=== PATIENT | female | born 1980 | race Caucasian/White ===

== ENCOUNTER 2023-09-12 22:25 | Emergency (ER) | payer SELFPAY ==
[2023-09-12] MEDS: Take Home: Sulfamethoxazole/Trimethoprim 800-160 MG Tab, 6 Tab Pack PO ONE (23:05)
== END 2023-09-12 23:11 | disposition home or self-care (01) ==
LOC: VM.ED 22:25
DX: L03.221 Cellulitis of neck (principal)
CPT/HCPCS: 99282; A9270-GY